=== PATIENT | female | born 1940 | race African-American/Black ===

== ENCOUNTER 2017-10-10 13:05 | Inpatient (IN) | payer OTHER, MEDICAID ==
[~2017-10-10] VITALS: Ht 162.6 cm; Wt 65.3 kg
--- NOTE | 2017-10-10 13:20 | NUR ---
RECIEVED PT TO ED BED 02, AA/OX3 WITH C/O LT SIDED CHEST PAIN THAT RADIATES TO LT ARM AND BACK THAT STARTED IN THE MIDDLE OF THE NIGHT. [id number], NITRO x 2 GIVEN BY EMS W/ RELIEF. VSS NAD RR EVEN AND UNLABORED. SKIN IS WARM AND NONDIAPHORETIC. ON CONT CARDIAC AND POX MONITORING. SEEN AND EVLAUTED BY DR STORM. EKG IN PROGRESS AT BEDSIDE
[2017-10-10 13:24] LABS: BASOPHILS % (AUTO) 0.6 % (0.0-2.0); EOSINOPHILS # (AUTO) 0.1 /CMM (0.0-0.7); EOSINOPHILS % (AUTO) 1.1 % (0.0-6.0); HEMATOCRIT 33 % (33-45); HEMOGLOBIN 10.6 g/dL (11.5-14.8); LYMPHOCYTES # (AUTO) 1.8 /CMM (0.8-4.8); LYMPHOCYTES % (AUTO) 24.2 % (20.0-44.0); MEAN CORPUSCULAR HEMOGLOBIN 27 PG (26.0-33.0); MEAN CORPUSCULAR HGB CONC 33 g/dl (31.0-36.0); MEAN CORPUSCULAR VOLUME 82 fL (82-100); MONOCYTES # (AUTO) 0.4 /CMM (0.1-1.30); MONOCYTES % (AUTO) 5.5 % (2.0-12.0); NEUTROPHILS % (AUTO) 68.6 % (43.0-81.0); PLATELET COUNT (AUTO) 223 /CMM (150-450); RDW COEFFICIENT OF VARIATION 15.9 (11.5-15.0); RED BLOOD CELL COUNT(AUTO) 3.98 MIL/uL (4.0-5.2); WHITE BLOOD COUNT (AUTO) 7.3 K/uL (4.3-11.0)
[2017-10-10 13:33] LABS: CALCIUM, SERUM 9.2 mg/dL (8.5-10.1); CARBON DIOXIDE 30 mmol/L (21-32); CHLORIDE 103 mmol/L (98-107); CREATININE 0.9 mg/dL (0.6-1.3); GLUCOSE 103 mg/dL (74-106); POTASSIUM 3.6 mmol/L (3.5-5.1); SODIUM SERUM 140 mmol/L (136-145); UREA NITROGEN, BLOOD 10 mg/dL (7-18)
[2017-10-10 13:38] LABS: INR 1.21 (0.87-1.13); PROTHROMBIN TIME 12.6 SECS (9.5-12.7)
[2017-10-10 13:43] LABS: TROPONIN I < 0.017 ng/mL (0.00-0.056)
--- NOTE | 2017-10-10 13:58 | NUR ---
DR. KINA TRIPATHI (PMD) [phone]
--- NOTE | 2017-10-10 13:59 | NUR ---
RPOSPER HAND (FAMILY) [phone]
[2017-10-10] MEDS ORDERED: DIGO250T PO (14:28)
[2017-10-10] MEDS ORDERED: APIX5TAB PO (14:28)
[2017-10-10] MEDS ORDERED: GABA-534 PO (14:28)
[2017-10-10] MEDS ORDERED: DULO20CA18 PO (14:28)
[2017-10-10] MEDS ORDERED: DONE5TAB3 PO (14:28)
[2017-10-10] MEDS ORDERED: OXYC5CAP3 PO (14:28)
[2017-10-10] MEDS ORDERED: METO25TA6 PO (14:28)
[2017-10-10] MEDS ORDERED: METF500T4 PO (14:28)
[2017-10-10] MEDS ORDERED: AMLO5TAB2 PO (14:28)
[2017-10-10] MEDS ORDERED: BENA20TA2 PO (14:28)
[2017-10-10] MEDS ORDERED: MAGNESIUM HYDROXIDE 30 ML UDC PO PRN (14:30)
[2017-10-10] MEDS ORDERED: Z GUARD REMEDY 2 OZ OINT TP PRN (14:30)
[2017-10-10] MEDS ORDERED: ACETAMINOPHEN 325 MG TABLET PO PRN (14:30)
[2017-10-10] MEDS ORDERED: MAG HYDROX/AL HYDROX/SIMETH 30 ML UDC PO PRN (14:30)
[2017-10-10] MEDS ORDERED: ONDANSETRON HCL/PF 4 MG/2 ML VIAL IVP PRN (14:30)
[2017-10-10] MEDS ORDERED: ZOLPIDEM TARTRATE 5 MG TABLET PO PRN (14:30)
[2017-10-10] MEDS ORDERED: MORPHINE SULFATE INJ 2 MG/ML DISP.SYRIN IV PRN (14:30)
--- NOTE | 2017-10-10 15:07 | NUR ---
REPORT GIVEN TO ARIES CALDWELL FOR CONT OF CARE.
[2017-10-10 16:00] VITALS: BP 147/80
--- NOTE | 2017-10-10 16:00 | NUR ---
TELE/BAKESHOP CLEANER PATIENT ADMITTED FROM ER TO ROOM 313-1. A/O X 3. NO SIGNS OF ACUTE DISTRESS. NO COMPLAIN OF PAIN OR DISCOMFORT AT THIS TIME. ADMITTING DX CHEST PAIN. IV SITE TO LEFT AC 20 INTACT AND FLUSHING WELL. VITALS STABLE, SKIN INTACT. ON TELE MONITOR WITH CONTROL A FIB WITH RATE OF 62. CONTINENT OF B&B. AMBULATES TO BATHROOM WITH ASSIST. AMBULATES WITH ASSIST. ALL NEEDS ATTENDED TO AT THIS TIME. CALL LIGHT WITHIN REACH. WILL CONTINUE TO MONITOR TO ENSURE SAFETY.
--- NOTE | 2017-10-10 16:03 | NUR ---
transferred to floor via acls protocol
--- NOTE | 2017-10-10 17:09 | NUR ---
MS/RN PAGED DR NANCE PAGED DR NANCE TO RECONCILE PATIENT'S HOME MEDS. AWAITING FOR CALL BACK WILL FOLLOW UP.
--- NOTE | 2017-10-10 19:25 | NUR ---
RN NOTE; RECEIVED PT IN BED AWAKE AND RESPONSIVE. W/ SOME ANXIETY . BREATHING EVENLY. NO SOB. NAD. SKIN WARM AND DRY. NO C/O PAIN OR DISCOMFORT. NO CP. A FIB ON TELE MONITOR, NEEDS ATTENDED. ASSISTED W/ ADLS. CALL LIGHT WITHIN REACH. WILL CONT TO MONITOR,
[2017-10-10 20:00] VITALS: BP 141/76
--- NOTE | 2017-10-10 20:48 | NUR ---
CALLED RT FOR EKG ORDER. TROPONIN RESULT CAME BACK NEGATIVE <0.017. PT STABLE W/ NO C/O PAIN OR DISCOMFORT. WILL CONT TO MONITOR,
--- NOTE | 2017-10-10 21:20 | NUR ---
SPOKE TO MATT COFFEY MD ON-CALL FOR MED RECON. WILL CONT TO MONITOR,
--- NOTE | 2017-10-10 22:35 | NUR ---
SPOKE TO MATT COFFEY AND RELAYED PT'S DX OF DM AND REQUESTED AN ORDER FOR FSBS CHECK. W/ A NEW ORDER NOTED.
[2017-10-10] MEDS: BLOOD SUGAR DIAGNOSTIC 1 EACH STRIP IN SCH (22:39)
[2017-10-10] MEDS ORDERED: DEXTROSE 50%-WATER 50 ML DISP.SYRIN IV PRN (23:00)
[2017-10-10] MEDS: NITROGLYCERIN 0.4 MG/TAB BOTTLE SL PRN (23:31)
--- NOTE | 2017-10-10 23:32 | NUR ---
NITROL 0.4MG SL TAB GIVEN FOR C/O CP. PT REMAINED ON TELE MONITOR READING AFIB RATE 76/MIN. WILL REMAIN WITH THE PT TO ENSURE PT'S SAFETY AND COMFORT.
--- NOTE | 2017-10-10 23:44 | NUR ---
PT REPORTED RELIEF OF CHEST PAIN. WILL CONT TO MONITOR WHILE ON ONGOING TELE MONITOR.
[2017-10-10 23:57] VITALS: BP 158/91
[2017-10-11] VITALS: BP 158/91
--- NOTE | 2017-10-11 00:22 | NUR ---
HANGIEN GIVEN ORDERED PER PT'S REQUEST FOR C/O INSOMNIA. WILL CONT TO MONITOR,
[2017-10-11] MEDS: HYDROCODONE/APAP 5/325MG 1 EACH TABLET PO PRN ×3 (01:59→23:13)
--- NOTE | 2017-10-11 02:00 | NUR ---
NORCO 5 GIVEN ORDERED FOR C/O GENERALIZED BODY PAIN. WILL CONT TO MONITOR,
[2017-10-11 04:00] VITALS: BP 91/64
--- NOTE | 2017-10-11 06:13 | NUR ---
RN NOTE; PT IN BED AWAKE AND RESPONSIVE. BREATHING EVENLY. NO SOB. NAD. NO ACUTE EVENT DURING THE NIGHT. ON ONGOING HEART MONITORING . READING AFIB W/ OCCASIONAL PVCs. W/ ONE EPISODE OF CP RELIVED BY NITRO SL ORDERED. ASSISTED W/ ADLS, CALL LIGHT WITHIN REACH. WILL CONT TO MONITOR AND WILL ENDORSE TO AM SHIFT FOR LUIS ENRIQUE.
[2017-10-11] MEDS: BLOOD SUGAR DIAGNOSTIC 1 EACH STRIP IN SCH ×4 (06:33→22:10)
[2017-10-11 06:35] LABS: BASOPHILS % (AUTO) 0.6 % (0.0-2.0); EOSINOPHILS # (AUTO) 0.1 /CMM (0.0-0.7); EOSINOPHILS % (AUTO) 1.4 % (0.0-6.0); HEMATOCRIT 31 % (33-45); LYMPHOCYTES % (AUTO) 28.3 % (20.0-44.0); MEAN CORPUSCULAR HEMOGLOBIN 27 PG (26.0-33.0); MEAN CORPUSCULAR HGB CONC 32 g/dl (31.0-36.0); MEAN CORPUSCULAR VOLUME 83 fL (82-100); MONOCYTES # (AUTO) 0.6 /CMM (0.1-1.30); MONOCYTES % (AUTO) 7.8 % (2.0-12.0); NEUTROPHILS # (AUTO) 4.4 /CMM (1.8-8.9); NEUTROPHILS % (AUTO) 61.9 % (43.0-81.0); PLATELET COUNT (AUTO) 203 /CMM (150-450); RDW COEFFICIENT OF VARIATION 16.8 (11.5-15.0); RED BLOOD CELL COUNT(AUTO) 3.75 MIL/uL (4.0-5.2); WHITE BLOOD COUNT (AUTO) 7.1 K/uL (4.3-11.0)
[2017-10-11 06:56] LABS: CHOLESTEROL 135 mg/dL (<200); HDL CHOLESTEROL 52 mg/dL (40-60); LDL 72 mg/dL (0-99); THYROID STIMULATING HORMONE 0.823 uIU/mL (0.358-3.74); TRIGLYCERIDES 57 mg/dL (30-150)
[2017-10-11 07:02] LABS: CALCIUM, SERUM 8.9 mg/dL (8.5-10.1); CARBON DIOXIDE 27 mmol/L (21-32); CHLORIDE 104 mmol/L (98-107); CREATININE 0.7 mg/dL (0.6-1.3); GLUCOSE 81 mg/dL (74-106); MAGNESIUM 1.9 mg/dL (1.8-2.4); POTASSIUM 3.7 mmol/L (3.5-5.1); SODIUM SERUM 140 mmol/L (136-145); UREA NITROGEN, BLOOD 12 mg/dL (7-18)
--- NOTE | 2017-10-11 07:22 | NUR ---
RN OPENING NOTES RECEIVED PT. IN BED SLEEPING COMFORTABLY. BREATHING UNLABORED AND EVENLY ON ROOM AIR. NO S/S OF ACUTE DISTRESS. BED IS IN LOWEST, AND LOCKED POSITION. 2 SIDE RAILS UP, AND INSTRUCTED PT. TO USE CALL LIGHT WITHIN REACH. ALL NEEDS ATTENDED TO. WILL CONTINUE TO ASSESS AND MONITOR.
--- NOTE | 2017-10-11 07:30 | NUR ---
RN NOTES PT. IS ON TELE MONITOR, READING IS ATRIAL FIBRILLATION AT 65 BPM. PT. HAS HX. OF A FIB.
[2017-10-11 08:00] VITALS: BP 133/81
[2017-10-11] MEDS: ASPIRIN EC 81 MG TABLET.DR PO SCH (09:17)
[2017-10-11] MEDS ORDERED: IV NS 0.9% 1,000 ML IV PRN ×2 (09:18→22:00)
[2017-10-11 12:00] VITALS: BP 150/77
[2017-10-11] MEDS: INSULIN REGULAR, HUMAN 100 UNIT/ML 3 ML VIAL SQ PRN ×2 (12:25→22:12)
[2017-10-11 16:00] VITALS: BP 121/76
--- NOTE | 2017-10-11 17:00 | NUR ---
RN NOTES PT.'S STEP DAUGHTER SIGNED CONSENT FORMS AT THE BEDSIDE FOR PERMANENT PACEMAKER PLACEMENT. SOUNDSCRIBER MECHANIC WAS INFORMED ABOUT PT.'S CONCERNS REGARDING PROCEDURE.
--- NOTE | 2017-10-11 18:57 | NUR ---
RN CLOSING NOTES PT.'S STEP DAUGHTER AT BEDSIDE. PT. IN BED A&OX4. TELE MONITOR READING ATRAIL FIBRILLATION AT 74 BPM. BREATHING UNLABORED AND EVENLY ON ROOM AIR. NO S/S OF ACUTE DISTRESS. IV FLUIDS RUNNING ON LEFT ANTECUBITAL IV SITE. BED IS IN LOWEST, AND LOCKED POSITION. 2 SIDE RAILS UP, AND INSTRUCTED PT. TO USE CALL LIGHT WITHIN REACH. ALL NEEDS ATTENDED TO. WILL ENDORSE REPORT TO NURSE.
--- NOTE | 2017-10-11 19:05 | NUR ---
RN NOTES BREAKFAST BAR ATTENDANT CALLED TO EXPLAIN THEY ARE WORKING ON GETTING A BED IN [facility], AND POSSIBLE TRANSFER [facility]. [facility] WILL CALL NURSE TO CONFIRM WHEN BED IS AVAILABLE, PLEASE INFORM STEP DAUGHTER.
--- NOTE | 2017-10-11 19:30 | NUR ---
RN OPENING NOTES PATIENT IS IN BED, ALERT AND ORIENTED X3. VS STABLE. NO C/OP PAIN AT THIS TIME. RESPIRATIONS EVEN AND UNLABORED. NO RESPIRATORY DISTRESS NOTED. IV ACCESS ON LEFT AC PATENT INTACT. FLUSHING WELL. BED IS IN LOW AND LOCKED POSITION. SIDE RAILSX2. CALL LIGHT WITHIN EASY REACH. CONTINUE TO MONITOR.
[2017-10-11 20:00] VITALS: BP_SYST 116; BP_SYST 146; BP_DIAS 73
--- NOTE | 2017-10-11 22:13 | NUR ---
RN NOTES BS 103. NO INSULIN ADMINISTERED PER PROTOCOL.
[2017-10-12] VITALS: BP 140/77
[2017-10-12 00:19] VITALS: BP 140/77
[2017-10-12 04:00] VITALS: BP 132/77
[2017-10-12] MEDS: BLOOD SUGAR DIAGNOSTIC 1 EACH STRIP IN SCH ×2 (06:23→12:09)
[2017-10-12] MEDS: INSULIN REGULAR, HUMAN 100 UNIT/ML 3 ML VIAL SQ PRN ×2 (06:24→12:22)
--- NOTE | 2017-10-12 06:25 | NUR ---
RN NOTES BS 89. NO INSULIN ADMINISTERED PER PROTOCOL. CONTINUE TO MONITOR.
[2017-10-12 07:08] LABS: BASOPHILS % (AUTO) 0.6 % (0.0-2.0); EOSINOPHILS # (AUTO) 0.1 /CMM (0.0-0.7); EOSINOPHILS % (AUTO) 1.8 % (0.0-6.0); HEMATOCRIT 32 % (33-45); HEMOGLOBIN 10.2 g/dL (11.5-14.8); LYMPHOCYTES # (AUTO) 1.9 /CMM (0.8-4.8); MEAN CORPUSCULAR HEMOGLOBIN 26 PG (26.0-33.0); MEAN CORPUSCULAR HGB CONC 32 g/dl (31.0-36.0); MEAN CORPUSCULAR VOLUME 82 fL (82-100); MONOCYTES # (AUTO) 0.5 /CMM (0.1-1.30); MONOCYTES % (AUTO) 8.4 % (2.0-12.0); NEUTROPHILS # (AUTO) 3.9 /CMM (1.8-8.9); NEUTROPHILS % (AUTO) 60.2 % (43.0-81.0); PLATELET COUNT (AUTO) 214 /CMM (150-450); RDW COEFFICIENT OF VARIATION 16.9 (11.5-15.0); RED BLOOD CELL COUNT(AUTO) 3.88 MIL/uL (4.0-5.2); WHITE BLOOD COUNT (AUTO) 6.5 K/uL (4.3-11.0)
[2017-10-12 07:15] LABS: CALCIUM, SERUM 8.3 mg/dL (8.5-10.1); CARBON DIOXIDE 27 mmol/L (21-32); CHLORIDE 105 mmol/L (98-107); CREATININE 0.7 mg/dL (0.6-1.3); GLUCOSE 87 mg/dL (74-106); POTASSIUM 3.9 mmol/L (3.5-5.1); SODIUM SERUM 140 mmol/L (136-145); UREA NITROGEN, BLOOD 12 mg/dL (7-18)
[2017-10-12 07:18] LABS: INR 1.22 (0.87-1.13); PROTHROMBIN TIME 12.7 SECS (9.5-12.7)
--- NOTE | 2017-10-12 07:27 | NUR ---
RN CLOSING NOTES PATIENT IS SLEEPING IN BED, EASILY AROUSABLE. VS STABLE. NO C/OP PAIN AT THIS TIME. RESPIRATIONS EVEN AND UNLABORED. IV ACCESS ON LEFT AC PATENT INTACT. FLUSHING WELL. PATIENT IS GOING FOR SURGICAL PROCEDURE. CONSENT SIGNED AND SURGICAL CHECK LIST DONE. BED IS IN LOW AND LOCKED POSITION. SIDE RAILSX2. CALL LIGHT WITHIN EASY REACH. WILL ENDORSE TO RN DAY SHIFT FOR CONTINUITY OF CARE.
--- NOTE | 2017-10-12 07:45 | NUR ---
RN OPENING NOTES RECEIVED PT. IN BED A&OX3. BREATHING UNLABORED AND EVENLY ON ROOM AIR. NO S/S OF ACUTE DISTRESS. IV FLUIDS AT BEDSIDE. BED IS IN LOWEST POSITION, 2 SIDE RAILS UP, AND INSTRUCTED PT. TO USE CALL LIGHT FOR ASSISTANCE.
[2017-10-12 08:00] VITALS: BP 136/96
[2017-10-12] MEDS ORDERED: IV D5/ 0.9% NACL 1,000 ML IV PRN (08:30)
[2017-10-12] MEDS: ASPIRIN EC 81 MG TABLET.DR PO SCH (09:00)
[2017-10-12 12:19] VITALS: BP 156/95
[2017-10-12] MEDS: NITROGLYCERIN 0.4 MG/TAB BOTTLE SL PRN (12:19)
--- NOTE | 2017-10-12 12:30 | NUR ---
RN NOTES PT. C/O CHEST PAIN. BP WAS 155/103 PULSE 100. PT. WAS GIVEN NITROGLYCERIN SUBLINGUALLY. AFTER 5 MIN. PT.'S CHEST PAIN RESOLVED, AND BP WAS 125/90, PULSE 80 BPM.
[2017-10-12] MEDS: HYDROCODONE/APAP 5/325MG 1 EACH TABLET PO PRN (15:11)
--- NOTE | 2017-10-12 15:15 | NUR ---
RN NOTES DISCHARGE INSTRUCTIONS, AND PACKET WAS SIGNED BY MAY ARIZMENDI'S HALF BROTHER. REPORT WAS GIVEN TO AMBULANCE, AND NURSE. CD FROM RADIOLOGY WAS GIVEN TO NURSE TO TAKE TO [facility]. BELONGINGS LIST WAS CHECKED AND SIGNED. IV WAS LEFT IN LEFT WRIST INTACT AND PATENT. ALL QUESTIONS WERE ANSWERED.
--- NOTE | 2017-10-12 15:31 | NUR ---
RN NOTES PT. LEFT BY AMBULANCE TO [facility] WITH MAY ALONG SIDE.
--- NOTE | 2017-10-12 16:00 | NUR ---
RN NOTES REPORT WAS GIVEN TO NURSE GENIE FROM [facility]. PT. IS GOING TO ROOM 521 AND WILL BE ADMITTED BY DR. SEBASTIAN.
== END 2017-10-12 15:31 | disposition short-term general hospital (02) | DRG 206 ==
LOC: ER 13:06 → TELE 16:00
DX: M94.0 Chondrocostal junction syndrome [Tietze] (principal); D68.59 Other primary thrombophilia; E11.40 Type 2 diabetes mellitus with diabetic neuropathy, unspecified; I50.32 Chronic diastolic (congestive) heart failure; I11.0 Hypertensive heart disease with heart failure; I49.5 Sick sinus syndrome; I48.91 Unspecified atrial fibrillation; Z88.0 Allergy status to penicillin; G89.29 Other chronic pain; F03.90 Unspecified dementia, unspecified severity, without behavioral disturbance, psychotic disturbance, mood disturbance, and anxiety; E78.5 Hyperlipidemia, unspecified; Z79.84 Long term (current) use of oral hypoglycemic drugs; D64.9 Anemia, unspecified
CPT/HCPCS: 36415; 71010-TC; 80048-TC; 80061-TC; 80162-TC; 82728-TC; 82962-TC; 83540-TC; 83735-TC; 84100-TC; 84439-TC; 84443-TC; 84484-TC; 85025-TC; 85610-TC; 85730-TC; 87081-TC; 93307-TC; A4606; A6253; J1815; J3490; J7030; Z7610